=== PATIENT | male | born 1975 | race African-American/Black ===

== ENCOUNTER 2017-09-22 11:46 | Emergency (ER) | payer MEDICAID ==
[~2017-09-22] VITALS: Ht 170.2 cm; Wt 107.0 kg
[~2017-09-22 11:46] MED LIST: ALBU2SYR PO; PRED1TAB PO
[2017-09-22] MEDS ORDERED: SODIUM CHLORIDE 0.9% 1,000 ML IV ONE (13:00)
[2017-09-22] MEDS ORDERED: ONDANSETRON HCL 4MG/2ML VIAL IV ONE (13:00)
[2017-09-22 13:19] LABS: BASOPHILS % 1.4 % (0.0-2.0); EOSINOPHILS % 4.8 % (0.0-5.0); HEMATOCRIT. 42.2 % (42.0-52.0); LYMPHOCYTES % 37.5 % (20.0-50.0); MEAN CORPUSCULAR HEMOGLOBIN 26.9 pg (28.0-32.0); MEAN PLATELET VOLUME 7.7 fl (7.4-10.4); MONOCYTES % 12.9 % (2.0-8.0); NEUTROPHILS % 43.4 % (40.0-76.0); PLATELET 290 x1000/uL (130-400); RED BLOOD CELL COUNT 5.21 mill/uL (4.7-6.1); RED CELL DISTRIBUTION WIDTH 15.1 % (11.6-14.6)
[2017-09-22 13:34] LABS: CARBON DIOXIDE 29 mEq/L (21-32); CHLORIDE 102 mEq/L (98-107)
[2017-09-22 14:06] LABS: CLARITY URINE CLEAR (CLEAR); COLOR URINE YELLOW (YELLOW); GLUCOSE URINE NEGATIVE (NEGATIVE); KETONES URINE NEGATIVE (NEGATIVE); LEUKOCYTE ESTERASE URINE NEGATIVE (NEGATIVE); NITRITE URINE NEGATIVE (NEGATIVE); OCCULT BLOOD URINE NEGATIVE (NEGATIVE); PROTEIN URINE TRACE (NEGATIVE); SPECIFIC GRAVITY URINE 1.031 (1.005-1.030)
[2017-09-22] MEDS ORDERED: IPRATROPIUM BROMIDE (0.02%) 0.5MG/2.5ML NEB HHN STA (15:11)
[2017-09-22] MEDS ORDERED: ALBUTEROL (0.083%) 2.5MG/3ML NEB HHN STA (15:11)
[2017-09-22] MEDS ORDERED: PREDNISONE 20MG TABLET PO STA (15:11)
[2017-09-22 15:55] VITALS: BP 124/82
== END 2017-09-22 16:16 | disposition home or self-care (01) ==
LOC: ER 12:13
DX: J45.901 Unspecified asthma with (acute) exacerbation (principal); J06.9 Acute upper respiratory infection, unspecified; Z91.018 Allergy to other foods
CPT/HCPCS: 36415; 80053; 81001; 83690; 85025; 94640; 99284; J7512; J7611; J7030

== ENCOUNTER 2023-07-22 12:24 | Emergency (ER) | payer MEDICAID ==
[~2023-07-22] VITALS: Ht 170.2 cm; Wt 137.0 kg
[~2023-07-22 12:24] MED LIST changes: -ALBU2SYR PO; +ALBU2SYR3 PO
[2023-07-22 12:26] VITALS: TEMP 98.9; O2SAT 97
[2023-07-22] MEDS ORDERED: HYDR-4001 MT (12:44)
[2023-07-22] MEDS ORDERED: HYDROCODONE/ACETAMINOPHEN 5/325MG TABLET PO PRN (12:45)
[2023-07-22] MEDS ORDERED: HYDR-4005 MT ×3 (12:46→13:00)
[2023-07-22 13:15] VITALS: BP 167/101; PULSE 92; RESP 16
== END 2023-07-22 13:19 | disposition home or self-care (01) ==
LOC: ER 12:24
DX: S76.311A Strain of muscle, fascia and tendon of the posterior muscle group at thigh level, right thigh, initial encounter (principal); E11.9 Type 2 diabetes mellitus without complications; J45.909 Unspecified asthma, uncomplicated; Z91.018 Allergy to other foods; W01.0XXA Fall on same level from slipping, tripping and stumbling without subsequent striking against object, initial encounter; Y93.01 Activity, walking, marching and hiking; Y92.89 Other specified places as the place of occurrence of the external cause; Y99.8 Other external cause status
CPT/HCPCS: 99283; Z7610